=== PATIENT | male | born 1965 ===

== ENCOUNTER → 2017-04-20 | Emergency (ER) | payer OTHER ==
[~2017-04-20] VITALS: Ht 175.3 cm; Wt 72.6 kg
== END | disposition home or self-care (01) ==
LOC: ER 12:03 → CPU-OBS 13:09
DX: R07.89 Other chest pain (principal); M94.0 Chondrocostal junction syndrome [Tietze]
CPT/HCPCS: G0378; G0379; 93005

== ENCOUNTER 2017-05-10 12:02 | Outpatient (CLI) | payer OTHER | END 2017-05-10 15:52 | disposition home or self-care (01) | LOC: MRI 12:02 | DX: K59.1 Functional diarrhea (principal) | CPT/HCPCS: 74183 ==